=== PATIENT | female | born 1995 | race Native Hawaiian/Other Pacific Islander ===

== ENCOUNTER 2016-12-20 02:51 | Emergency (ER) | payer SELFPAY ==
[~2016-12-20] VITALS: Ht 157.5 cm; Wt 64.4 kg
[2016-12-20 02:57] VITALS: Ht 157.5 cm; Wt 64.4 kg
[2016-12-20] MEDS ORDERED: SODIUM CHLORIDE 0.9% 1000ML 1,000 ML IV STA (03:50)
[2016-12-20] MEDS ORDERED: ACETAMINOPHEN 325 MG TAB PO STA (03:50)
[2016-12-20 04:20] LABS: BASO % 0.1 %; BASO ABS # 0.01 K/uL (0-0.2); COMPLETE YES; EOS % 0.2 %; HEMATOCRIT 41.8 % (37-47); IG% 0.2 %; LYMPH % 11.9 %; LYMPH ABS # 1.57 K/uL (1.2-3.4); MEAN CELL VOLUME 93.9 fL (80-100); MEAN CORPUSCULAR HEMOGLOBIN 32.1 pg (25-34); MEAN CORPUSCULAR HGB CONC 34.2 g/dl (32-36); MEAN PLATELET VOLUME 12.3 fL (7.4-10.4); MONO % 6.8 %; NEUT % 80.8 %; PLATELET COUNT 219 K/uL (130-400); RED BLOOD COUNT 4.45 M/uL (4.2-5.4); WHITE BLOOD COUNT 13.23 K/uL (4.8-10.8)
[2016-12-20 04:41] LABS: MANUAL MICROSCOPIC REQUIRED? NO; REVIEW REQ? NO; URINE APPEARANCE CLEAR (CLEAR); URINE BILIRUBIN NEG (NEG); URINE COLOR YELLOW; URINE EPITHELIAL CELL AUTO >30 /lpf (0-5); URINE NITRITE NEG (NEG); URINE SPECIFIC GRAVITY 1.019 (1.000-1.030); UROBILINOGEN NEG (NEG); ZZUR CULT IF INDIC CLEAN CATCH NO
[2016-12-20 04:49] LABS: BUN/CREATININE RATIO 9.9 (10-20); CALCIUM 8.8 mg/dl (8.5-10.1); CREATININE 0.84 mg/dl (0.60-1.20); POTASSIUM 3.6 mmol/L (3.5-5.1)
[2016-12-20] MEDS ORDERED: AMOXICILLIN/CLAVULANATE TAB 875 MG TAB PO ONE (06:00)
[2016-12-20 06:18] LABS: INFLUENZA A PCR Neg for Influ A (NEG); INFLUENZA B PCR Neg for Influ B (NEG)
--- NOTE | 2016-12-20 06:44 | DIAGNOSTIC IMAGING REPORT ---
CHEST ONE VIEW PORTABLE CLINICAL HISTORY: fever, cough COMPARISON STUDY: No previous studies for comparison. FINDINGS: The cardiac and mediastinal contours are normal. There is no evidence of focal pulmonary consolidation. There is no evidence of failure. No pleural effusions are visualized.[ IMPRESSION: No active disease in the chest. Electronically signed by: Jayden Pratt M.D. 12/20/2016 6:42 AM Dictated Date/Time: 12/20/2016 6:42 AM
[2016-12-20 07:03] VITALS: TEMP 36.8
[2016-12-20] MEDS ORDERED: AMOX875T PO (07:04)
--- NOTE | 2016-12-20 07:07 | EMERGENCY ROOM VISIT NOTE ---
History Report prepared by Shanda: Tiburcio Joel Under the Supervision of: Dr. Erika Howe M.D. First contact with patient: 03:28 Chief Complaint: ILLNESS Stated Complaint: FEVER,CHILLS,EAR AND THROAT PAIN History of Present Illness The patient is a 21 year old female who presents to the Emergency Room with complaints of a persistent illness beginning yesterday. Her symptoms include fevers, chills, ear pain, and jaw pain. She states that her fever began today. The patient has taken Advil for her symptoms, but has seen minimal relief. Nothing has improved her symptoms. She denies any back pain or urinary symptoms. Source of History: patient Onset: Yesterday Quality: other (illness) Timing: other (persistent) Modifying Factors (Relieving): other (none) Associated Symptoms: + chills, + fevers, No back pain, No urinary symptoms Note: The patient's symptoms include jaw pain and ear pain. Review of Systems See HPI for pertinent positives & negatives. A total of 10 systems reviewed and were otherwise negative. Past Medical & Surgical Medical Problems: (1) Back pain (2) No Known Active Medical Problems Family History No pertinent family history stated. Social History Smoking Status: Current Some Day Smoker Marital Status: single Housing Status: lives with family Occupation Status: [employer] Current/Historical Medications Scheduled Amoxicillin & Pot Clavulanate (Augmentin 875-125 mg), 875 MG PO BID Allergies Coded Allergies: No Known Allergies (Unverified , 12/20/16) Physical Exam Vital Signs Date Time Temp Pulse Resp B/P Pulse Ox O2 Delivery O2 Flow Rate FiO2 12/20/16 07:36 98 18 111/66 99 12/20/16 07:03 36.8 12/20/16 05:43 96 18 99/52 97 Room Air 12/20/16 02:57 37.9 129 18 128/85 100 Room Air Physical Exam Vital signs reviewed. General: Well-appearing female, in no significant distress. Noted to be febrile. HEENT: No scleral icterus, PERRLA, neck supple. No meningeal signs. Right TM is erythematous and opaque. Minimal swelling to the posterior oropharynx without exudate. Atraumatic. Cardiovascular: Regular rate and rhythm, no extra sounds. Pulmonary: Clear to auscultation bilaterally, normal work of breathing. Abdomen: Soft, nontender, nondistended, positive bowel sounds. Musculoskeletal: Atraumatic, no peripheral edema. Neurologic: Patient awake alert and oriented x 3 Skin: Warm, dry, no rash Medical Decision & Procedures ER Provider Diagnostic Interpretation: One View Chest X-ray interpreted by me: No focal lung consolidation. No failure. Laboratory Results 12/20/16 04:05 Red Blood Count 4.45, Mean Corpuscular Volume 93.9, Mean Corpuscular Hemoglobin 32.1, Mean Corpuscular Hemoglobin Concent 34.2, Mean Platelet Volume 12.3, Neutrophils (%) (Auto) 80.8, Lymphocytes (%) (Auto) 11.9, Monocytes (%) (Auto) 6.8, Eosinophils (%) (Auto) 0.2, Basophils (%) (Auto) 0.1, Neutrophils # (Auto) 10.69, Lymphocytes # (Auto) 1.57, Monocytes # (Auto) 0.90, Eosinophils # (Auto) 0.03, Basophils # (Auto) 0.01 12/20/16 04:05 Test 12/20/16 04:05 White Blood Count 13.23 K/uL (4.8-10.8) Red Blood Count 4.45 M/uL (4.2-5.4) Hemoglobin 14.3 g/dL (12.0-16.0) Hematocrit 41.8 % (37-47) Mean Corpuscular Volume 93.9 fL (80-100) Mean Corpuscular Hemoglobin 32.1 pg (25-34) Mean Corpuscular Hemoglobin Concent 34.2 g/dl (32-36) Platelet Count 219 K/uL (130-400) Mean Platelet Volume 12.3 fL (7.4-10.4) Neutrophils (%) (Auto) 80.8 % Lymphocytes (%) (Auto) 11.9 % Monocytes (%) (Auto) 6.8 % Eosinophils (%) (Auto) 0.2 % Basophils (%) (Auto) 0.1 % Neutrophils # (Auto) 10.69 K/uL (1.4-6.5) Lymphocytes # (Auto) 1.57 K/uL (1.2-3.4) Monocytes # (Auto) 0.90 K/uL (0.11-0.59) Eosinophils # (Auto) 0.03 K/uL (0-0.5) Basophils # (Auto) 0.01 K/uL (0-0.2) RDW Standard Deviation 48.0 fL (36.4-46.3) RDW Coefficient of Variation 13.9 % (11.5-14.5) Immature Granulocyte % (Auto) 0.2 % Immature Granulocyte # (Auto) 0.03 K/uL (0.00-0.02) Urine Color YELLOW Urine Appearance CLEAR (CLEAR) Urine pH 5.0 (4.5-7.5) Urine Specific [place] 1.019 (1.000-1.030) Urine Protein NEG (NEG) Urine Glucose (UA) NEG (NEG) Urine Ketones NEG (NEG) Urine Occult Blood TRACE (NEG) Urine Nitrite NEG (NEG) Urine Bilirubin NEG (NEG) Urine Urobilinogen NEG (NEG) Urine Leukocyte Esterase NEG (NEG) Urine WBC (Auto) 1-5 /hpf (0-5) Urine RBC (Auto) 10-30 /hpf (0-4) Urine Hyaline Casts (Auto) 1-5 /lpf (0-5) Urine Epithelial Cells (Auto) >30 /lpf (0-5) Urine Bacteria (Auto) NEG (NEG) Anion Gap 9.0 mmol/L (3-11) Est Creatinine Clear Calc Drug Dose 93.4 ml/min Estimated GFR () 115.1 Estimated GFR (Non- 99.4 BUN/Creatinine Ratio 9.9 (10-20) Calcium Level 8.8 mg/dl (8.5-10.1) Total Bilirubin 0.5 mg/dl (0.2-1) Direct Bilirubin 0.1 mg/dl (0-0.2) Aspartate Amino Transf (AST/SGOT) 13 U/L (15-37) Alanine Aminotransferase (ALT/SGPT) 16 U/L (12-78) Alkaline Phosphatase 98 U/L (45-117) Total Protein 7.8 gm/dl (6.4-8.2) Albumin 4.0 gm/dl (3.4-5.0) Influenza Type A (RT-PCR) Neg for Influ A (NEG) Influenza Type A Antigen Neg for Influ A (NEG) Influenza Type B Antigen Neg for Influ B (NEG) Influenza Type B (RT-PCR) Neg for Influ B (NEG) Laboratory results per my review. Medications Administered Medications (Trade) Dose Ordered Sig/Ray Route Start Time Stop Time Status Last Admin Dose Admin Acetaminophen 650 mg 650 mg NOW STAT PO 12/20/16 03:50 12/20/16 03:52 DC 12/20/16 04:01 650 MG Sodium Chloride (Nss 1000ml) 1,000 ml @ 999 mls/hr Q1H1M STAT IV 12/20/16 03:50 12/20/16 04:50 DC 12/20/16 03:50 999 MLS/HR Amoxicillin/ Clavulanate Potassium (Augmentin Tab) 875 mg ONE ONCE PO 12/20/16 06:00 12/20/16 06:01 DC 12/20/16 06:21 875 MG ED Course 0353: Past medical records reviewed. The patient was evaluated in room B8. A complete history and physical examination was performed. 0350: Ordered Sodium Chloride 1000 ml @ 999 mls/hr IV, Tylenol Tab 650 mg PO. 0600: Ordered Augmentin Tab 875 mg PO. 0700: Upon reevaluation, the patient appeared to have improvement of her symptoms. I discussed findings with her. The patient verbalized agreement of the treatment plan. She was discharged home. Medical Decision DDx: Influenza, other viral illness, pneumonia, urinary tract infection, metabolic abnormality, medication effect, cellulitis, meningitis, intra-abdominal source. This patient was evaluated and appeared to be in no significant distress. Physical examination reveals a right otitis media. Influenza swab is negative. Chest x-ray is clear. Laboratory work reveals a leukocytosis. Patient was feeling improved after oral Tylenol. She will be placed on Augmentin, first dose in the ER, for 10 days. She was advised to follow-up with her primary care physician this week for reevaluation and return to the ER for worsening of symptoms or any medical concerns. Impression Primary Impression: Right acute otitis media Scribe Attestation The scribe's documentation has been prepared under my direction and personally reviewed by me in its entirety. I confirm that the note above accurately reflects all work, treatment, procedures, and medical decision making performed by me. Departure Information Dispostion Home / Self-Care Prescriptions Amoxicillin & Pot Clavulanate (Augmentin 875-125 mg) 1 Tab Tab 875 MG PO BID for 10 Days, #20 TAB Prov: Erika Howe M.D. 12/20/16 Referrals No Doctor, Assigned (PCP) Forms HOME CARE DOCUMENTATION FORM, IMPORTANT VISIT INFORMATION, WORK / SCHOOL INSTRUCTIONS Patient Instructions My [facility] Additional Instructions Diagnosis: Right otitis media Augmentin 875 mg twice daily for 10 days. Ibuprofen 600 mg every 6 hours as needed for pain or fever. Tylenol 650 mg every 6 hours as needed for pain or fever. Drink plenty of clear fluids. Follow-up with your physician this week for reevaluation. Return to the ER for worsening of symptoms or any medical concerns.
[2016-12-20 07:36] VITALS: BP 111/66; PULSE 98; O2SAT 99
== END 2016-12-20 07:37 | disposition home or self-care (01) ==
LOC: C.EDB 02:52
DX: H66.91 Otitis media, unspecified, right ear (principal); F17.200 Nicotine dependence, unspecified, uncomplicated

== ENCOUNTER 2017-12-13 03:14 | Emergency (ER) | payer OTHER ==
[~2017-12-13] VITALS: Ht 157.5 cm; Wt 63.5 kg
[2017-12-13 03:17] VITALS: TEMP 36.9; Ht 157.5 cm; Wt 63.5 kg
[2017-12-13] MEDS ORDERED: ONDANSETRON INJ 2 MG/ML 2 ML VIAL IV STA (03:32)
[2017-12-13] MEDS ORDERED: SODIUM CHLORIDE 0.9% 1000ML 1,000 ML IV STA (03:32)
[2017-12-13] MEDS ORDERED: GI COCKTAIL PO STA (03:32)
[2017-12-13] MEDS ORDERED: ALUMINUM/MAGNESIUM SUSP 30 ML UDC ONE (03:41)
[2017-12-13] MEDS ORDERED: LIDOCAINE HCL 2% VISC SOLN 20 ML UDC ONE (03:41)
--- NOTE | 2017-12-13 04:02 | EMERGENCY ROOM VISIT NOTE ---
History First contact with patient: 03:20 Chief Complaint: ABDOMINAL PAIN Stated Complaint: STOMACH PAIN Nursing Triage Summary: Pt complains of abdominal pain for 3 days. +vomiting and diarrhea. History of Present Illness The patient is a 22 year old female who presents to the Emergency Room with complaints of abdominal pain for the past 3 days. The patient reports that she has had a constant pain in her upper abdomen for the past 3 days. She is unable to describe the quality of the pain. She rates the discomfort as 7/10. She does state that she has had a few episodes of vomiting each day since the pain started. She states that she feels she is vomiting up acid. She had some diarrhea for the first 2 days but states this has resolved. She states that nothing worsens her pain. She tried some Pepto-Bismol which did help her pain. She denies any history of abdominal issues or surgeries. She denies urinary symptoms, chest pain/shortness of breath, vaginal discharge or fever/chills. Her last menstrual period was 1 week ago. Review of Systems A complete 10 point review of systems was reviewed with the patient with pertinent positives and negatives as per history of present illness. All else were negative. Past Medical/Surgical History Medical Problems: (1) Back pain (2) No Known Active Medical Problems Social History Smoking Status: Former Smoker Marital Status: single Housing Status: lives with family Occupation Status: [employer] Current/Historical Medications Scheduled Omeprazole (Prilosec), 40 MG PO DAILY Ondasetron Odt (Zofran Odt), 4 MG SL Q6H Physical Exam Vital Signs Date Time Temp Pulse Resp B/P (MAP) Pulse Ox O2 Delivery O2 Flow Rate FiO2 12/13/17 06:24 78 17 112/74 99 12/13/17 05:15 73 16 104/58 99 Room Air 12/13/17 03:17 36.9 89 16 116/80 98 Physical Exam VITALS: Vitals are noted on the nurse's note and reviewed by myself. Vital signs stable. GENERAL: This is a 22-year-old female, in no acute distress, nondiaphoretic, well-developed well-nourished. SKIN: The skin was without rashes. EARS: External auditory canals clear, tympanic membranes pearly sexton without erythema or effusion bilaterally. EYES: Pupils equal round and reactive to light and accommodation. MOUTH: Mucous membranes moist. HEART: Regular rate and rhythm without murmurs gallops or rubs. LUNGS: Clear to auscultation bilaterally without wheezes, rales or rhonchi. ABDOMEN: Positive bowel sounds x 4. Soft, mild tenderness across the upper abdomen, most pronounced in the epigastric region. No guarding or rebound tenderness. NEURO: Patient was alert and oriented to person place and time. Medical Decision & Procedures ER Provider Diagnostic Interpretation: US RUQ: Contracted gallbladder. No stones, wall thickening or pericholecystic fluid. Negative sonographic Smalls sign. No biliary dilation. Mildly increased liver echogenicity may reflect fatty liver. Right kidney, partially visualized pancreas appear normal Radiologist: Lorraine Pederson M.D. Laboratory Results 12/13/17 03:56 Red Blood Count 4.23, Mean Corpuscular Volume 94.6, Mean Corpuscular Hemoglobin 31.9, Mean Corpuscular Hemoglobin Concent 33.8, Mean Platelet Volume 12.2, Neutrophils (%) (Auto) 57.3, Lymphocytes (%) (Auto) 33.1, Monocytes (%) (Auto) 7.5, Eosinophils (%) (Auto) 1.7, Basophils (%) (Auto) 0.2, Neutrophils # (Auto) 6.29, Lymphocytes # (Auto) 3.63, Monocytes # (Auto) 0.82, Eosinophils # (Auto) 0.19, Basophils # (Auto) 0.02 12/13/17 03:56 Test 12/13/17 03:56 12/13/17 04:01 White Blood Count 10.97 K/uL (4.8-10.8) Red Blood Count 4.23 M/uL (4.2-5.4) Hemoglobin 13.5 g/dL (12.0-16.0) Hematocrit 40.0 % (37-47) Mean Corpuscular Volume 94.6 fL (80-100) Mean Corpuscular Hemoglobin 31.9 pg (25-34) Mean Corpuscular Hemoglobin Concent 33.8 g/dl (32-36) Platelet Count 271 K/uL (130-400) Mean Platelet Volume 12.2 fL (7.4-10.4) Neutrophils (%) (Auto) 57.3 % Lymphocytes (%) (Auto) 33.1 % Monocytes (%) (Auto) 7.5 % Eosinophils (%) (Auto) 1.7 % Basophils (%) (Auto) 0.2 % Neutrophils # (Auto) 6.29 K/uL (1.4-6.5) Lymphocytes # (Auto) 3.63 K/uL (1.2-3.4) Monocytes # (Auto) 0.82 K/uL (0.11-0.59) Eosinophils # (Auto) 0.19 K/uL (0-0.5) Basophils # (Auto) 0.02 K/uL (0-0.2) RDW Standard Deviation 48.3 fL (36.4-46.3) RDW Coefficient of Variation 14.0 % (11.5-14.5) Immature Granulocyte % (Auto) 0.2 % Immature Granulocyte # (Auto) 0.02 K/uL (0.00-0.02) Anion Gap 6.0 mmol/L (3-11) Est Creatinine Clear Calc Drug Dose 95.4 ml/min Estimated GFR () 119.5 Estimated GFR (Non- 103.1 BUN/Creatinine Ratio 10.3 (10-20) Calcium Level 8.8 mg/dl (8.5-10.1) Total Bilirubin 0.4 mg/dl (0.2-1) Aspartate Amino Transf (AST/SGOT) 17 U/L (15-37) Alanine Aminotransferase (ALT/SGPT) 16 U/L (12-78) Alkaline Phosphatase 97 U/L (45-117) Total Protein 7.4 gm/dl (6.4-8.2) Albumin 3.8 gm/dl (3.4-5.0) Globulin 3.6 gm/dl (2.5-4.0) Albumin/Globulin Ratio 1.1 (0.9-2) Lipase 143 U/L (73-393) Urine Color DK YELLOW Urine Appearance CLOUDY (CLEAR) Urine pH 5.5 (4.5-7.5) Urine Specific [place] 1.035 (1.000-1.030) Urine Protein NEG (NEG) Urine Glucose (UA) NEG (NEG) Urine Ketones 1+ (NEG) Urine Occult Blood NEG (NEG) Urine Nitrite NEG (NEG) Urine Bilirubin NEG (NEG) Urine Urobilinogen NEG (NEG) Urine Leukocyte Esterase TRACE (NEG) Urine WBC (Auto) 1-5 /hpf (0-5) Urine RBC (Auto) 0-4 /hpf (0-4) Urine Hyaline Casts (Auto) 0 /lpf (0-5) Urine Epithelial Cells (Auto) >30 /lpf (0-5) Urine Bacteria (Auto) NEG (NEG) Urine Pathogenic Casts /lpf (0) Urine Mucus PRESENT (NONE PRSENT) Urine Test NEG (NEG) Medications Administered Medications (Trade) Dose Ordered Sig/Ray Route Start Time Stop Time Status Last Admin Dose Admin Ondansetron HCl (Zofran Inj) 4 mg NOW STAT IV 12/13/17 03:32 12/13/17 03:34 DC 12/13/17 03:59 4 MG Sodium Chloride 1,000 ml @ 999 mls/hr Q1H1M STAT IV 12/13/17 03:32 12/13/17 04:32 DC 12/13/17 03:59 999 MLS/HR Al Hydroxide/Mg Hydroxide (Maalox Susp) 30 ml STK-MED ONCE .ROUTE 12/13/17 03:41 12/13/17 03:42 DC 12/13/17 03:59 30 ML Lidocaine HCl (Viscous Lidocaine 2% Soln) 20 ml STK-MED ONCE .ROUTE 12/13/17 03:41 12/13/17 03:42 DC 12/13/17 03:59 20 ML Medical Decision Differential diagnosis includes gastritis, gastroenteritis, cholecystitis, pancreatitis, UTI, small bowel obstruction, among others. The patient is a 22-year-old female who presents today complaining of upper abdominal pain. Labs revealed no leukocytosis, anemia or concerning electrolyte abnormalities. LFTs were within normal limits. Urinalysis was not suggestive of infection. Urine was negative. Right upper quadrant ultrasound was interpreted by statrad and showed no acute findings. Patient felt much better after treatment with Zofran and a GI cocktail. Symptoms are consistent with gastritis. She will be placed on Prilosec. Postop changes were discussed with the patient. She was advised to follow-up with her primary care provider this week for a recheck. Based on the patient's presentation and work up, I feel the patient is stable for outpatient treatment. The patient was educated to return to the emergency department for any worsening of their current condition or new/concerning symptoms. She will follow up with her PCP. Medication Reconcilliation Current Medication List: was personally reviewed by me Blood Pressure Screening Patient's blood pressure: Normal blood pressure Impression Primary Impression: Epigastric abdominal pain Departure Information Dispostion Home / Self-Care Condition GOOD Prescriptions Ondasetron Odt (ZOFRAN ODT) 4 Mg Tab 4 MG SL Q6H for Nausea, #15 TAB Prov: Ghada Leon .LUISA 12/13/17 Omeprazole (PRILOSEC) 40 Mg Cap 40 MG PO DAILY for 14 Days, #14 CAP Prov: Ghada Leon PA-C 12/13/17 Referrals [facility] (PCP) Patient Instructions My [facility] Additional Instructions You have been treated in the Emergency Department for your Abdominal Pain. Laboratory results and imaging studies have ruled out any emergent causes for your abdominal pain which would warrant admission or surgery. Take the Prilosec as prescribed, each morning before you have anything to eat or drink. You have been prescribed Zofran to be used as needed for any nausea or vomiting. Take as prescribed. For pain control, you can use the following [id number]-eulvoob medicines (if >12 yo): - Regular strength (325mg/tab) Tylenol (acetaminophen) 2 tabs every 4-6 hours as needed. Do not exceed 12 tablets in a 24 hour period. Avoid taking more than 4 grams (4000 mg) of Tylenol per day. This includes any other sources of acetaminophen you may take on a regular basis. You may take Tums or Maalox [id number] as needed for any pain. Drink plenty of water and stay well hydrated. Contact [facility] to schedule a follow-up by the end of the week. Return to the emergency department if your symptoms persist despite treatment plan outlined above or if the following symptoms occur: Worsening pain, persistent vomiting, fever or other new/concerning symptoms.
[2017-12-13 04:08] LABS: BASO % 0.2 %; BASO ABS # 0.02 K/uL (0-0.2); EOS % 1.7 %; EOS ABS # 0.19 K/uL (0-0.5); HEMOGLOBIN 13.5 g/dL (12.0-16.0); IG# 0.02 K/uL (0.00-0.02); LYMPH % 33.1 %; LYMPH ABS # 3.63 K/uL (1.2-3.4); MEAN CELL VOLUME 94.6 fL (80-100); MEAN CORPUSCULAR HEMOGLOBIN 31.9 pg (25-34); MEAN CORPUSCULAR HGB CONC 33.8 g/dl (32-36); MEAN PLATELET VOLUME 12.2 fL (7.4-10.4); MONO % 7.5 %; MONO ABS # 0.82 K/uL (0.11-0.59); NEUT % 57.3 %; NEUT ABS # 6.29 K/uL (1.4-6.5); PLATELET COUNT 271 K/uL (130-400); RED CELL DISTRIBUTION WIDTH SD 48.3 fL (36.4-46.3); WHITE BLOOD COUNT 10.97 K/uL (4.8-10.8)
[2017-12-13 04:33] LABS: ALBUMIN 3.8 gm/dl (3.4-5.0); CALCIUM 8.8 mg/dl (8.5-10.1); CREATININE 0.81 mg/dl (0.60-1.20); POTASSIUM 3.4 mmol/L (3.5-5.1)
[2017-12-13 04:36] LABS: TOTAL PROTEIN 7.4 gm/dl (6.4-8.2)
[2017-12-13] MEDS ORDERED: ONDA4TAB10 SL (06:08)
[2017-12-13] MEDS ORDERED: OMEP40CA41 PO (06:08)
[2017-12-13 06:24] VITALS: BP 112/74; PULSE 78; O2SAT 99
--- NOTE | 2017-12-13 07:34 | DIAGNOSTIC IMAGING REPORT ---
GALLBLADDER-ABD LIMITED CLINICAL HISTORY: 22 years-old Female presenting with epigastric/ruq pain, vomiting. TECHNIQUE: Real-time grayscale and limited color Doppler ultrasound imaging of the abdomen limited to the right upper quadrant was performed. COMPARISON: None. FINDINGS: Pancreas: Visualized portions of the pancreatic head and body normal. Liver: Mildly hyperechogenic parenchyma, although the right hemidiaphragm remains visible, likely indicating mild steatosis. The liver measures 13.9 cm in maximal sagittal dimension. No sonographic evidence of hepatic mass. Main portal vein patent with normal directional flow. Biliary: No intrahepatic biliary ductal dilatation. Common bile duct measures up to 1 mm in diameter. Gallbladder: Decompressed. Sonographic Smalls's sign negative. Right kidney: Normal in appearance. No hydronephrosis. Ascites: None. Other: None. IMPRESSION: 1. Suggestion of mild hepatic steatosis. Correlate with liver function tests to exclude steatohepatitis as a cause for abdominal pain. 2. Decompressed gallbladder without evidence of cholelithiasis or cholecystitis. Electronically signed by: Jose Andujar M.D. 12/13/2017 7:33 AM Dictated Date/Time: 12/13/2017 7:00 AM
== END 2017-12-13 06:25 | disposition home or self-care (01) ==
LOC: C.EDB 03:15
DX: R10.13 Epigastric pain (principal); R11.10 Vomiting, unspecified; R19.7 Diarrhea, unspecified; Z87.891 Personal history of nicotine dependence